=== PATIENT | female | born 1945 | race Caucasian/White ===

== ENCOUNTER 2016-05-10 13:47 | Inpatient (IN) | payer MEDICARE, MEDICAID ==
[~2016-05-10] VITALS: Ht 165.1 cm; Wt 85.8 kg
[2016-05-10] MEDS ORDERED: OPTIRAY 350 100 ML VIAL HMH IV ONE (13:48)
[2016-05-10] MEDS ORDERED: SODIUM CHLORIDE 0.9% 1,000 ML ONE ×2 (16:45→16:50)
[2016-05-10] MEDS ORDERED: CEFTRIAXONE 1 GM VIAL ONE (16:49)
[2016-05-10] MEDS ORDERED: SODIUM CHLORIDE 0.9% 100 ML IV ONE ×2 (16:50→19:21)
[2016-05-10] MEDS ORDERED: AZITHROMYCIN 500 MG VIAL IV ONE (19:20)
[2016-05-10] MEDS ORDERED: PIPER/TAZO 3.375 GM PYXIS ONE (19:20)
[2016-05-10] MEDS ORDERED: SODIUM CHLORIDE 0.9% 250 ML IV ONE (19:20)
[2016-05-10] MEDS ORDERED: NOREPINEPHRINE 16 MG in DEXTROSE 5% 250 ML IV SCH (21:10)
[2016-05-10] MEDS ORDERED: DEXTROSE 50% SYRINGE 50 ML IV PRN (21:10)
[2016-05-10] MEDS ORDERED: SALINE FLUSH 10 ML FLUSH PRN (21:10)
[2016-05-10] MEDS ORDERED: GLUCAGON 1 MG VIAL IM PRN (21:10)
[2016-05-10 21:25] VITALS: BP_SYST 109; RESP 20; TEMP 98.6
[2016-05-10 21:30] VITALS: BMI 33.6
[2016-05-10] MEDS: MICONAZOLE 2% PWD TOPICAL SCH (22:19)
[2016-05-10] MEDS: SODIUM CHLORIDE 0.9% 1,000 ML IV SCH (22:20)
[2016-05-10] MEDS: ACETAMINOPHEN 325 MG TAB PO PRN (22:26)
[2016-05-10 23:38] VITALS: BP_SYST 82; TEMP 97.9
[2016-05-10 23:40] VITALS: RESP 20
[2016-05-11] VITALS (9 sets, daily range): BP systolic 104–123; RESP 16–20; TEMP 98.1–98.8; BMI 34.5
[2016-05-11] MEDS ORDERED: PIPERACIL/TAZO 4.5GM/100ML 100 ML IV SCH
[2016-05-11] MEDS: SODIUM CHLORIDE 0.9% FLUSH BAG 500 ML IV SCH (00:05)
[2016-05-11] MEDS: PIPERACIL/TAZO 3.375GM/50ML 50 ML IV SCH ×4 (00:53→18:31)
[2016-05-11] MEDS: ONDANSETRON 4 MG VIAL IV PUSH PRN ×2 (04:51→09:22)
[2016-05-11] MEDS: ACETAMINOPHEN 325 MG TAB PO PRN ×2 (04:51→09:18)
[2016-05-11] MEDS: SODIUM CHLORIDE 0.9% 1,000 ML IV SCH ×2 (07:26→22:06)
[2016-05-11] MEDS: SALINE FLUSH 10 ML FLUSH SCH ×2 (08:00→22:06)
[2016-05-11] MEDS: CEFTRIAXONE 2 GM in SODIUM CHLORIDE 0.9% 50 ML IV SCH (08:05)
[2016-05-11] MEDS: AZITHROMYCIN 500 MG in SODIUM CHLORIDE 0.9% 250 ML IV SCH (08:05)
[2016-05-11] MEDS: ENOXAPARIN 40 MG/0.4 ML SYR SUBQ SCH ×2 (08:06→08:17)
[2016-05-11] MEDS: MICONAZOLE 2% PWD TOPICAL SCH ×3 (08:06→21:00)
[2016-05-11] MEDS: MAGNESIUM SULF 1 GM/100 ML 100 ML IV SCH ×2 (11:50→12:54)
[2016-05-11] MEDS: GABAPENTIN 300 MG CAP PO SCH ×2 (12:59→22:07)
[2016-05-11] MEDS: DOCUSATE SOD 100 MG CAP PO SCH (21:00)
[2016-05-12] VITALS (9 sets, daily range): BP systolic 100–131; RESP 16–24; TEMP 97.5–98.7
[2016-05-12] MEDS: PIPERACIL/TAZO 3.375GM/50ML 50 ML IV SCH ×5 (00:35→23:23)
[2016-05-12] MEDS: SODIUM CHLORIDE 0.9% FLUSH BAG 500 ML IV SCH (06:00)
[2016-05-12] MEDS: SALINE FLUSH 10 ML FLUSH SCH ×2 (08:00→20:00)
[2016-05-12] MEDS: ENOXAPARIN 40 MG/0.4 ML SYR SUBQ SCH (08:15)
[2016-05-12] MEDS: GABAPENTIN 300 MG CAP PO SCH ×2 (08:15→21:00)
[2016-05-12] MEDS: MICONAZOLE 2% PWD TOPICAL SCH ×3 (08:17→21:00)
[2016-05-12] MEDS: CEFTRIAXONE 2 GM in SODIUM CHLORIDE 0.9% 50 ML IV SCH (08:26)
[2016-05-12] MEDS: AZITHROMYCIN 500 MG in SODIUM CHLORIDE 0.9% 250 ML IV SCH (09:39)
[2016-05-12] MEDS ORDERED: LOPERAMIDE 2 MG CAPSULE PO PRN (18:40)
[2016-05-12] MEDS ORDERED: KCL CR 20 MEQ TAB PO ONE (18:40)
[2016-05-12] MEDS: LEVOTHYROXINE 0.15 MG TAB PO SCH (18:57)
[2016-05-12] MEDS: DIGOXIN 0.125 MG TAB PO SCH (18:57)
[2016-05-12] MEDS: SERTRALINE 50 MG TAB PO SCH (18:58)
[2016-05-12] MEDS: FAMOTIDINE 20 MG TAB PO SCH (21:00)
[2016-05-12] MEDS: KCL CR 10 MEQ TAB PO SCH (21:00)
[2016-05-12] MEDS: DOCUSATE SOD 100 MG CAP PO SCH (21:00)
[2016-05-12] MEDS: Carvedilol 6.25 MG TAB PO SCH (21:00)
[2016-05-12] MEDS: SODIUM CHLORIDE 0.9% 1,000 ML IV SCH (23:23)
[2016-05-13 03:22] VITALS: BP_SYST 90; RESP 22; TEMP 97.5
[2016-05-13] MEDS: SODIUM CHLORIDE 0.9% FLUSH BAG 500 ML IV SCH (06:00)
[2016-05-13] MEDS: PIPERACIL/TAZO 3.375GM/50ML 50 ML IV SCH (06:20)
[2016-05-13] MEDS: DICYCLOMINE 10 MG CAP PO SCH ×3 (06:27→16:46)
[2016-05-13] MEDS: LEVOTHYROXINE 0.15 MG TAB PO SCH (06:27)
[2016-05-13 08:30] VITALS: BP_SYST 116; RESP 16; TEMP 98.3
[2016-05-13] MEDS: Carvedilol 6.25 MG TAB PO SCH ×2 (08:52→20:46)
[2016-05-13] MEDS: FAMOTIDINE 20 MG TAB PO SCH ×2 (08:52→20:45)
[2016-05-13] MEDS: SERTRALINE 50 MG TAB PO SCH (08:53)
[2016-05-13] MEDS: GABAPENTIN 300 MG CAP PO SCH ×2 (08:53→20:45)
[2016-05-13] MEDS: KCL CR 10 MEQ TAB PO SCH ×2 (08:53→20:46)
[2016-05-13] MEDS: MICONAZOLE 2% PWD TOPICAL SCH (08:54)
[2016-05-13] MEDS: DIGOXIN 0.125 MG TAB PO SCH (08:54)
[2016-05-13] MEDS: ENOXAPARIN 40 MG/0.4 ML SYR SUBQ SCH (08:54)
[2016-05-13] MEDS: POTASSIUM CHLORIDE PREMIX 50 ML IV SCH ×3 (09:06→12:30)
[2016-05-13] MEDS: SALINE FLUSH 10 ML FLUSH SCH ×2 (09:07→20:00)
[2016-05-13] MEDS ORDERED: SODIUM CHLORIDE 0.9% 500 ML IV ONE (09:35)
[2016-05-13] MEDS: CEFEPIME 2000 MG/100 ML D5W 100 ML IV SCH ×2 (10:09→20:45)
[2016-05-13 11:15] VITALS: BP_SYST 122; RESP 16; TEMP 97
[2016-05-13] MEDS: ONDANSETRON 4 MG VIAL IV PUSH PRN (11:25)
[2016-05-13] MEDS: SODIUM CHLORIDE 0.9% 1,000 ML IV SCH (13:57)
[2016-05-13 15:02] VITALS: BP_SYST 98; RESP 16; TEMP 96.5
[2016-05-13 19:46] VITALS: BP_SYST 110; RESP 16; TEMP 97
[2016-05-13] MEDS ORDERED: CEFEPIME 1,000 MG in SODIUM CHLORIDE 0.9% 100 ML IV SCH (20:00)
[2016-05-13] MEDS: DOCUSATE SOD 100 MG CAP PO SCH (20:46)
[2016-05-13 23:11] VITALS: BP_SYST 108; RESP 16; TEMP 97.1
[2016-05-14 03:08] VITALS: BP_SYST 110; RESP 16; TEMP 97
[2016-05-14] MEDS: SODIUM CHLORIDE 0.9% FLUSH BAG 500 ML IV SCH (05:08)
[2016-05-14] MEDS: MICONAZOLE 2% PWD TOPICAL SCH ×3 (05:08→20:31)
[2016-05-14] MEDS: SODIUM CHLORIDE 0.9% 1,000 ML IV SCH ×2 (06:28→23:15)
[2016-05-14] MEDS: LEVOTHYROXINE 0.15 MG TAB PO SCH (06:28)
[2016-05-14] MEDS: DICYCLOMINE 10 MG CAP PO SCH ×3 (06:28→16:00)
[2016-05-14] MEDS: SALINE FLUSH 10 ML FLUSH SCH ×2 (08:00→20:00)
[2016-05-14 08:11] VITALS: BP_SYST 102; RESP 20
[2016-05-14] MEDS: FAMOTIDINE 20 MG TAB PO SCH ×3 (09:24→21:00)
[2016-05-14] MEDS: CEFEPIME 2000 MG/100 ML D5W 100 ML IV SCH ×2 (09:24→20:31)
[2016-05-14] MEDS: Carvedilol 6.25 MG TAB PO SCH ×3 (09:24→21:00)
[2016-05-14] MEDS: GABAPENTIN 300 MG CAP PO SCH ×3 (09:24→21:00)
[2016-05-14] MEDS ORDERED: MISSING DOSE XX ONE ×2 (09:25→09:35)
[2016-05-14] MEDS: ENOXAPARIN 40 MG/0.4 ML SYR SUBQ SCH (09:25)
[2016-05-14] MEDS: SERTRALINE 50 MG TAB PO SCH (09:26)
[2016-05-14 11:04] VITALS: BP_SYST 90; RESP 20; TEMP 98
[2016-05-14] MEDS: KCL CR 20 MEQ TAB PO SCH ×3 (11:41→21:00)
[2016-05-14] MEDS: DIGOXIN 0.125 MG TAB PO SCH (11:41)
[2016-05-14 16:00] VITALS: BP_SYST 108; RESP 18; TEMP 97.8
[2016-05-14 19:26] VITALS: BP_SYST 100; RESP 20; TEMP 97.1
[2016-05-14] MEDS: DOCUSATE SOD 100 MG CAP PO SCH (20:23)
[2016-05-14 23:17] VITALS: BP_SYST 98; RESP 20; TEMP 97
[2016-05-15] VITALS (29 sets, daily range): BP systolic 98–139; RESP 0–24; TEMP 96.7–98.2
[2016-05-15] MEDS: SODIUM CHLORIDE 0.9% FLUSH BAG 500 ML IV SCH (06:00)
[2016-05-15] MEDS: LEVOTHYROXINE 0.15 MG TAB PO SCH (06:46)
[2016-05-15] MEDS: DICYCLOMINE 10 MG CAP PO SCH ×3 (06:46→16:00)
[2016-05-15] MEDS: SALINE FLUSH 10 ML FLUSH SCH ×2 (08:00→20:00)
[2016-05-15] MEDS ORDERED: KCL 20 MEQ/15 ML UDC PO ONE (08:30)
[2016-05-15] MEDS: Carvedilol 6.25 MG TAB PO SCH (09:00)
[2016-05-15] MEDS: CEFEPIME 2000 MG/100 ML D5W 100 ML IV SCH ×2 (10:08→21:05)
[2016-05-15] MEDS: GABAPENTIN 300 MG CAP PO SCH ×4 (10:09→20:57)
[2016-05-15] MEDS: KCL CR 20 MEQ TAB PO SCH ×2 (10:09→20:56)
[2016-05-15] MEDS: FAMOTIDINE 20 MG TAB PO SCH ×2 (10:09→20:57)
[2016-05-15] MEDS: DIGOXIN 0.125 MG TAB PO SCH (10:10)
[2016-05-15] MEDS: SERTRALINE 50 MG TAB PO SCH (10:11)
[2016-05-15] MEDS: ENOXAPARIN 40 MG/0.4 ML SYR SUBQ SCH (10:11)
[2016-05-15] MEDS: MICONAZOLE 2% PWD TOPICAL SCH ×2 (10:12→20:56)
[2016-05-15] MEDS ORDERED: PHARMACY TO DOSE VANCOMYCIN IV SCH (10:55)
[2016-05-15] MEDS ORDERED: ONDANSETRON 4 MG TAB PO PRN (11:30)
[2016-05-15] MEDS ORDERED: GUAIFEN/DM 10 ML UDC PO PRN (11:30)
[2016-05-15] MEDS: VANCOMYCIN 1,750 MG in SODIUM CHLORIDE 0.9% 500 ML IV SCH (12:07)
[2016-05-15] MEDS: PETROLATUM TOPICAL SCH ×2 (12:07→20:55)
[2016-05-15] MEDS: ACETAMINOPHEN 500 MG TAB PO SCH ×3 (12:08→20:57)
[2016-05-15] MEDS: CALCIUM CARB/VIT D3 600 MG TAB PO SCH ×2 (12:08→20:56)
[2016-05-15] MEDS: DUONEB INH PRN ×3 (12:48→19:42)
[2016-05-15] MEDS ORDERED: MISSING DOSE XX ONE (20:50)
[2016-05-15] MEDS: DOCUSATE SOD 100 MG CAP PO SCH (20:56)
[2016-05-15] MEDS: BACITRACIN OINT TOPICAL SCH (20:56)
[2016-05-15] MEDS ORDERED: MONTELUKAST 10 MG TAB PO SCH (21:00)
[2016-05-16] VITALS (25 sets, daily range): BP systolic 94–190; RESP 14–23; TEMP 95.7–97.9; Ht 165.1 cm; Wt 85.8 kg
[2016-05-16] MEDS: VANCOMYCIN 1,750 MG in SODIUM CHLORIDE 0.9% 500 ML IV SCH ×2 (00:48→12:04)
[2016-05-16] MEDS: DUONEB INH PRN (03:08)
[2016-05-16] MEDS: SODIUM CHLORIDE 0.9% FLUSH BAG 500 ML IV SCH (05:27)
[2016-05-16] MEDS: DICYCLOMINE 10 MG CAP PO SCH ×2 (05:28→11:00)
[2016-05-16] MEDS: LEVOTHYROXINE 0.15 MG TAB PO SCH (05:28)
[2016-05-16] MEDS: DIGOXIN 0.125 MG TAB PO SCH (07:47)
[2016-05-16] MEDS: KCL CR 20 MEQ TAB PO SCH (07:47)
[2016-05-16] MEDS: CALCIUM CARB/VIT D3 600 MG TAB PO SCH (07:47)
[2016-05-16] MEDS: GABAPENTIN 300 MG CAP PO SCH ×2 (07:48→07:51)
[2016-05-16] MEDS: FAMOTIDINE 20 MG TAB PO SCH (07:48)
[2016-05-16] MEDS: CEFEPIME 2000 MG/100 ML D5W 100 ML IV SCH ×2 (07:49→20:09)
[2016-05-16] MEDS: ACETAMINOPHEN 500 MG TAB PO SCH (07:49)
[2016-05-16] MEDS: SALINE FLUSH 10 ML FLUSH SCH ×2 (07:49→20:09)
[2016-05-16] MEDS: SERTRALINE 50 MG TAB PO SCH (07:50)
[2016-05-16] MEDS: ENOXAPARIN 40 MG/0.4 ML SYR SUBQ SCH (07:50)
[2016-05-16] MEDS: PETROLATUM TOPICAL SCH ×2 (07:50→20:47)
[2016-05-16] MEDS: MICONAZOLE 2% PWD TOPICAL SCH ×2 (07:51→20:47)
[2016-05-16] MEDS ORDERED: *PATIENT RECEIVING TUBE FEEDS, ASSESS/ADJUST MEDICATIONS NG SCH (14:50)
[2016-05-16] MEDS ORDERED: GUAIFEN/DM 10 ML UDC NG PRN (15:00)
[2016-05-16] MEDS ORDERED: ONDANSETRON 4 MG TAB NG PRN (15:00)
[2016-05-16] MEDS ORDERED: ACETAMINOPHEN 650 MG/20.3 ML UDC NG PRN (15:00)
[2016-05-16] MEDS ORDERED: LOPERAMIDE 2 MG/10 ML NG PRN (15:00)
[2016-05-16] MEDS: DICYCLOMINE 10 MG CAP NG SCH (15:48)
[2016-05-16] MEDS: ACETAMINOPHEN 650 MG/20.3 ML UDC NG SCH ×2 (15:49→20:16)
[2016-05-16] MEDS ORDERED: Furosemide 20 MG/2 ML VIAL IV ONE (17:50)
[2016-05-16] MEDS: MAGNESIUM SULF 1 GM/100 ML 100 ML IV SCH ×2 (18:55→20:08)
[2016-05-16] MEDS: DOCUSATE SOD 100 MG/10 ML UDC NG SCH (20:11)
[2016-05-16] MEDS: GABAPENTIN 250 MG/5 ML UDC NG SCH (20:14)
[2016-05-16] MEDS: KCL 20 MEQ/15 ML UDC NG SCH (20:14)
[2016-05-16] MEDS: CALCIUM CARB/VIT D3 600 MG TAB NG SCH (20:14)
[2016-05-16] MEDS: MONTELUKAST 10 MG TAB NG SCH (20:15)
[2016-05-16] MEDS: FAMOTIDINE 20 MG TAB NG SCH (20:15)
[2016-05-16] MEDS: BACITRACIN OINT TOPICAL SCH (20:49)
[2016-05-17] VITALS (22 sets, daily range): BP systolic 107–158; RESP 16–28; TEMP 95.8–98.1
[2016-05-17] MEDS ORDERED: MISSING DOSE XX ONE ×2 (01:55→20:05)
[2016-05-17] MEDS: SODIUM CHLORIDE 0.9% FLUSH BAG 500 ML IV SCH ×2 (04:14→04:15)
[2016-05-17] MEDS: LEVOTHYROXINE 0.15 MG TAB NG SCH (06:02)
[2016-05-17] MEDS: DICYCLOMINE 10 MG CAP NG SCH ×3 (06:02→16:07)
[2016-05-17] MEDS: POTASSIUM CHLORIDE PREMIX 50 ML IV SCH ×5 (08:08→16:04)
[2016-05-17] MEDS: KCL 20 MEQ/15 ML UDC NG SCH ×2 (08:09→20:02)
[2016-05-17] MEDS: SALINE FLUSH 10 ML FLUSH SCH ×2 (08:09→20:00)
[2016-05-17] MEDS: CALCIUM CARB/VIT D3 600 MG TAB NG SCH ×2 (08:09→20:01)
[2016-05-17] MEDS: CEFEPIME 2000 MG/100 ML D5W 100 ML IV SCH ×2 (08:09→20:17)
[2016-05-17] MEDS: FAMOTIDINE 20 MG TAB NG SCH ×2 (08:10→20:01)
[2016-05-17] MEDS: GABAPENTIN 250 MG/5 ML UDC NG SCH ×2 (08:10→20:02)
[2016-05-17] MEDS: ENOXAPARIN 40 MG/0.4 ML SYR SUBQ SCH (08:11)
[2016-05-17] MEDS: MICONAZOLE 2% PWD TOPICAL SCH ×2 (08:12→21:00)
[2016-05-17] MEDS: PETROLATUM TOPICAL SCH ×2 (08:13→21:00)
[2016-05-17] MEDS: ACETAMINOPHEN 650 MG/20.3 ML UDC NG SCH ×3 (08:13→20:16)
[2016-05-17] MEDS: SERTRALINE 50 MG TAB NG SCH (08:16)
[2016-05-17] MEDS: Furosemide 40 MG/4 ML VIAL IV SCH ×2 (09:20→18:08)
[2016-05-17] MEDS ORDERED: LOPERAMIDE 2 MG/10 ML NG PRN (10:25)
[2016-05-17] MEDS: DIGOXIN NG SCH (12:18)
[2016-05-17] MEDS ORDERED: PHARMACY TO DOSE VANCOMYCIN IV SCH (12:35)
[2016-05-17] MEDS: MONTELUKAST 10 MG TAB NG SCH (20:01)
[2016-05-17] MEDS: BACITRACIN OINT TOPICAL SCH (21:00)
[2016-05-17] MEDS: DOCUSATE SOD 100 MG/10 ML UDC NG SCH (21:00)
[2016-05-17] MEDS: DILAUDID 1 MG/ML AMP IV PRN (22:18)
[2016-05-18] MEDS ORDERED: Furosemide 40 MG/4 ML VIAL IV ONE (00:15)
[2016-05-18 03:29] VITALS: BP_SYST 140
[2016-05-18 03:49] VITALS: BP_SYST 150; RESP 20; TEMP 98.4
[2016-05-18] MEDS: DILAUDID 1 MG/ML AMP IV PRN (05:15)
[2016-05-18] MEDS ORDERED: VANCOMYCIN 1,500 MG in SODIUM CHLORIDE 0.9% 250 ML IV SCH (06:00)
[2016-05-18] MEDS: SODIUM CHLORIDE 0.9% FLUSH BAG 500 ML IV SCH ×2 (06:00)
[2016-05-18] MEDS: LEVOTHYROXINE 0.15 MG TAB NG SCH (07:30)
[2016-05-18] MEDS: DICYCLOMINE 10 MG CAP NG SCH ×3 (07:30→15:25)
[2016-05-18 07:47] VITALS: BP_SYST 119; RESP 18; TEMP 97.7
[2016-05-18] MEDS: FAMOTIDINE 20 MG TAB NG SCH ×2 (08:58→20:24)
[2016-05-18] MEDS: SERTRALINE 50 MG TAB NG SCH (08:58)
[2016-05-18] MEDS: CALCIUM CARB/VIT D3 600 MG TAB NG SCH ×2 (08:58→20:24)
[2016-05-18] MEDS: ACETAMINOPHEN 650 MG/20.3 ML UDC NG SCH ×3 (08:59→20:23)
[2016-05-18] MEDS: KCL 20 MEQ/15 ML UDC NG SCH ×2 (09:00→20:24)
[2016-05-18] MEDS: ENOXAPARIN 40 MG/0.4 ML SYR SUBQ SCH (09:00)
[2016-05-18] MEDS: Furosemide 40 MG/4 ML VIAL IV SCH ×2 (09:01→15:27)
[2016-05-18] MEDS: GABAPENTIN 250 MG/5 ML UDC NG SCH ×2 (09:01→20:25)
[2016-05-18] MEDS: SALINE FLUSH 10 ML FLUSH SCH ×2 (09:02→20:58)
[2016-05-18] MEDS: CEFEPIME 2000 MG/100 ML D5W 100 ML IV SCH ×2 (09:02→20:58)
[2016-05-18] MEDS: PETROLATUM TOPICAL SCH ×2 (09:03→20:25)
[2016-05-18] MEDS: MICONAZOLE 2% PWD TOPICAL SCH ×2 (09:03→20:26)
[2016-05-18] MEDS: DIGOXIN NG SCH ×2 (12:00→15:26)
[2016-05-18] MEDS ORDERED: MISSING DOSE XX ONE ×2 (12:50)
[2016-05-18 15:42] VITALS: BP_SYST 108; RESP 20; TEMP 96.7
[2016-05-18] MEDS ORDERED: KCL 20 MEQ/15 ML UDC PO ONE (16:25)
[2016-05-18] MEDS: DIGOXIN 0.125 MG TAB NG SCH (17:07)
[2016-05-18 20:02] VITALS: BP_SYST 142; RESP 20; TEMP 98.1
[2016-05-18] MEDS: MONTELUKAST 10 MG TAB NG SCH (20:24)
[2016-05-18] MEDS: DOCUSATE SOD 100 MG/10 ML UDC NG SCH (20:24)
[2016-05-18] MEDS: BACITRACIN OINT TOPICAL SCH (20:27)
[2016-05-19] VITALS (7 sets, daily range): BP systolic 92–144; RESP 18–20; TEMP 97.1–99.3
[2016-05-19] MEDS: SODIUM CHLORIDE 0.9% FLUSH BAG 500 ML IV SCH ×2 (05:26→05:27)
[2016-05-19] MEDS: LEVOTHYROXINE 0.15 MG TAB NG SCH (05:27)
[2016-05-19] MEDS: DICYCLOMINE 10 MG CAP NG SCH ×3 (05:27→16:42)
[2016-05-19] MEDS: MICONAZOLE 2% PWD TOPICAL SCH ×2 (09:05→21:16)
[2016-05-19] MEDS: PETROLATUM TOPICAL SCH ×2 (09:05→20:36)
[2016-05-19] MEDS: Furosemide 40 MG/4 ML VIAL IV SCH ×2 (09:05→16:43)
[2016-05-19] MEDS: GABAPENTIN 250 MG/5 ML UDC NG SCH ×2 (09:05→20:37)
[2016-05-19] MEDS: CEFEPIME 2000 MG/100 ML D5W 100 ML IV SCH ×2 (09:06→20:34)
[2016-05-19] MEDS: ACETAMINOPHEN 650 MG/20.3 ML UDC NG SCH ×3 (09:06→20:43)
[2016-05-19] MEDS: FAMOTIDINE 20 MG TAB NG SCH ×2 (09:06→20:36)
[2016-05-19] MEDS: CALCIUM CARB/VIT D3 600 MG TAB NG SCH ×2 (09:06→20:36)
[2016-05-19] MEDS: ENOXAPARIN 40 MG/0.4 ML SYR SUBQ SCH (09:07)
[2016-05-19] MEDS: KCL 20 MEQ/15 ML UDC NG SCH ×2 (09:07→22:24)
[2016-05-19] MEDS: SERTRALINE 50 MG TAB NG SCH (09:07)
[2016-05-19] MEDS: SALINE FLUSH 10 ML FLUSH SCH ×2 (09:08→20:34)
[2016-05-19] MEDS: DIGOXIN 0.125 MG TAB NG SCH (11:32)
[2016-05-19] MEDS: MONTELUKAST 10 MG TAB NG SCH (20:34)
[2016-05-19] MEDS: DOCUSATE SOD 100 MG/10 ML UDC NG SCH (20:35)
[2016-05-19] MEDS: BACITRACIN OINT TOPICAL SCH (20:42)
[2016-05-19] MEDS ORDERED: MISSING DOSE XX ONE (21:20)
[2016-05-20] VITALS (7 sets, daily range): BP systolic 100–142; RESP 20–32; TEMP 98.9–100.3
[2016-05-20] MEDS: SODIUM CHLORIDE 0.9% FLUSH BAG 500 ML IV SCH ×2 (05:28)
[2016-05-20] MEDS: DICYCLOMINE 10 MG CAP NG SCH ×3 (07:00→17:20)
[2016-05-20] MEDS: LEVOTHYROXINE 0.15 MG TAB NG SCH (07:00)
[2016-05-20] MEDS ORDERED: MISSING DOSE XX ONE ×2 (08:10→21:10)
[2016-05-20] MEDS: SALINE FLUSH 10 ML FLUSH SCH ×2 (08:20→21:33)
[2016-05-20] MEDS: KCL 20 MEQ/15 ML UDC NG SCH ×2 (08:20→21:33)
[2016-05-20] MEDS: ACETAMINOPHEN 650 MG/20.3 ML UDC NG SCH (08:21)
[2016-05-20] MEDS: FAMOTIDINE 20 MG TAB NG SCH ×2 (08:22→21:34)
[2016-05-20] MEDS: Furosemide 40 MG/4 ML VIAL IV SCH ×2 (08:22→17:20)
[2016-05-20] MEDS: CALCIUM CARB/VIT D3 600 MG TAB NG SCH ×2 (08:22→21:34)
[2016-05-20] MEDS: GABAPENTIN 250 MG/5 ML UDC NG SCH ×2 (08:23→21:35)
[2016-05-20] MEDS: SERTRALINE 50 MG TAB NG SCH (08:24)
[2016-05-20] MEDS: CEFEPIME 2000 MG/100 ML D5W 100 ML IV SCH (08:26)
[2016-05-20] MEDS: MICONAZOLE 2% PWD TOPICAL SCH ×2 (08:28→21:34)
[2016-05-20] MEDS: PETROLATUM TOPICAL SCH ×2 (08:28→21:34)
[2016-05-20] MEDS: ENOXAPARIN 40 MG/0.4 ML SYR SUBQ SCH (08:29)
[2016-05-20] MEDS ORDERED: SODIUM CHLORIDE 0.9% IV ONE (08:50)
[2016-05-20] MEDS ORDERED: POTASSIUM CHLORIDE IV ONE (08:50)
[2016-05-20] MEDS ORDERED: LIDOCAINE 1% IV ONE (08:50)
[2016-05-20] MEDS: DIGOXIN 0.125 MG TAB NG SCH (11:44)
[2016-05-20] MEDS ORDERED: ACETAMINOPHEN 1,000 MG/100 ML IV PRN (12:35)
[2016-05-20] MEDS: DUONEB INH SCH ×4 (12:35→23:07)
[2016-05-20] MEDS: CEFEPIME 1,000 MG in SODIUM CHLORIDE 0.9% 100 ML IV SCH (17:20)
[2016-05-20] MEDS ORDERED: Furosemide 40 MG/4 ML VIAL IV ONE (18:15)
[2016-05-20] MEDS: DOCUSATE SOD 100 MG/10 ML UDC NG SCH (21:33)
[2016-05-20] MEDS: BACITRACIN OINT TOPICAL SCH (21:34)
[2016-05-20] MEDS: MONTELUKAST 10 MG TAB NG SCH (21:34)
[2016-05-21] MEDS: CEFEPIME 1,000 MG in SODIUM CHLORIDE 0.9% 100 ML IV SCH ×2 (00:06→08:36)
[2016-05-21 04:02] VITALS: BP_SYST 110; RESP 30; TEMP 100.8
[2016-05-21] MEDS: SODIUM CHLORIDE 0.9% FLUSH BAG 500 ML IV SCH (05:59)
[2016-05-21] MEDS: DICYCLOMINE 10 MG CAP NG SCH ×2 (06:00→11:40)
[2016-05-21] MEDS: LEVOTHYROXINE 0.15 MG TAB NG SCH (06:01)
[2016-05-21] MEDS: DUONEB INH SCH ×3 (07:31→15:00)
[2016-05-21 08:15] VITALS: BP_SYST 118; RESP 28; TEMP 100.3
[2016-05-21] MEDS: SALINE FLUSH 10 ML FLUSH SCH (08:36)
[2016-05-21] MEDS: FAMOTIDINE 20 MG TAB NG SCH (08:37)
[2016-05-21] MEDS: KCL 20 MEQ/15 ML UDC NG SCH (08:37)
[2016-05-21] MEDS: GABAPENTIN 250 MG/5 ML UDC NG SCH (08:37)
[2016-05-21] MEDS: CALCIUM CARB/VIT D3 600 MG TAB NG SCH (08:37)
[2016-05-21] MEDS: Furosemide 40 MG/4 ML VIAL IV SCH (08:37)
[2016-05-21] MEDS: SERTRALINE 50 MG TAB NG SCH (08:37)
[2016-05-21] MEDS: PETROLATUM TOPICAL SCH ×2 (08:38→20:35)
[2016-05-21] MEDS: ENOXAPARIN 40 MG/0.4 ML SYR SUBQ SCH (08:38)
[2016-05-21] MEDS: MICONAZOLE 2% PWD TOPICAL SCH ×2 (08:39→20:35)
[2016-05-21] MEDS ORDERED: VANCOMYCIN 750 MG in SODIUM CHLORIDE 0.9% 250 ML IV ONE (10:20)
[2016-05-21] MEDS ORDERED: MICAFUNGIN 100 MG in SODIUM CHLORIDE 0.9% 100 ML IV SCH (10:55)
[2016-05-21 11:34] VITALS: BP_SYST 116; RESP 30; TEMP 100.3
[2016-05-21] MEDS: DIGOXIN 0.125 MG TAB NG SCH (11:41)
[2016-05-21] MEDS ORDERED: ACETAMINOPHEN 325 MG TAB PO PRN (12:15)
[2016-05-21] MEDS ORDERED: ARTIF TEARS OP SOLN 0.4ML EYE EACH PRN (12:15)
[2016-05-21] MEDS ORDERED: Senna/DSS 50/8.6 MG TAB PO PRN (12:15)
[2016-05-21] MEDS ORDERED: HYOSCYAMINE SULF 0.125 MG/ML DROPS PO PRN (12:15)
[2016-05-21] MEDS ORDERED: GUAIFEN/DM 10 ML UDC PO PRN (12:15)
[2016-05-21] MEDS ORDERED: ALU/MAG/SIM 30 ML UDC PO PRN (12:15)
[2016-05-21] MEDS ORDERED: DUONEB INH PRN (12:15)
[2016-05-21] MEDS ORDERED: LORAZEPAM 0.5 MG TAB PO PRN (12:15)
[2016-05-21] MEDS ORDERED: BISMUTH SUBSAL BTL PO PRN (12:15)
[2016-05-21] MEDS: MORPHINE 2 MG/ML SYR IV PRN ×3 (12:30→22:08)
[2016-05-21] MEDS: ATROPINE 1% OP SOLN SL PRN ×2 (13:00→20:35)
[2016-05-21] MEDS ORDERED: NYSTATIN 500,000 UNITS/5 ML SUSP SWISH.SWAL SCH (13:00)
[2016-05-21] MEDS: BACITRACIN OINT TOPICAL SCH (20:35)
[2016-05-22] MEDS: ATROPINE 1% OP SOLN SL PRN (02:12)
[2016-05-22] MEDS: MORPHINE 2 MG/ML SYR IV PRN ×2 (02:12→10:23)
[2016-05-22] MEDS: SODIUM CHLORIDE 0.9% FLUSH BAG 500 ML IV SCH (05:10)
[2016-05-22] MEDS: PETROLATUM TOPICAL SCH (08:46)
[2016-05-22] MEDS: MICONAZOLE 2% PWD TOPICAL SCH (08:46)
[2016-05-22 09:25] VITALS: BP_SYST 98; RESP 16; TEMP 99.7
[2016-05-22 13:02] VITALS: BP_SYST 98; RESP 16; TEMP 99.7
== END 2016-05-22 15:03 | DRG 871 ==
LOC: ENRESERVDT → ENRESERV → ENRESERVTM → ER 13:47 → EMR 19:49 → ENPENDDIS 19:49 → 3NT 21:12 → CCU 05-15 13:16 → 4THW 05-17 17:14
PROVIDERS: ADMIT Internal Medicine; ATTEND Internal Medicine
PROC: 02HV33Z Insertion of Infusion Device into Superior Vena Cava, Percutaneous Approach (ICD-10-PCS; principal; 2016-05-16)
DX: A41.9 Sepsis, unspecified organism (principal); G93.41 Metabolic encephalopathy; J96.11 Chronic respiratory failure with hypoxia; E46 Unspecified protein-calorie malnutrition; K59.2 Neurogenic bowel, not elsewhere classified; G82.20 Paraplegia, unspecified; N39.0 Urinary tract infection, site not specified; I50.32 Chronic diastolic (congestive) heart failure; L03.116 Cellulitis of left lower limb; L03.115 Cellulitis of right lower limb; L03.114 Cellulitis of left upper limb; L03.113 Cellulitis of right upper limb; B96.20 Unspecified Escherichia coli [E. coli] as the cause of diseases classified elsewhere; B96.5 Pseudomonas (aeruginosa) (mallei) (pseudomallei) as the cause of diseases classified elsewhere; Z16.30 Resistance to unspecified antimicrobial drugs; I11.0 Hypertensive heart disease with heart failure; E66.01 Morbid (severe) obesity due to excess calories; Z68.33 Body mass index [BMI] 33.0-33.9, adult; G47.33 Obstructive sleep apnea (adult) (pediatric); E03.9 Hypothyroidism, unspecified; N31.9 Neuromuscular dysfunction of bladder, unspecified; J44.9 Chronic obstructive pulmonary disease, unspecified; F41.9 Anxiety disorder, unspecified; F43.21 Adjustment disorder with depressed mood; E11.9 Type 2 diabetes mellitus without complications; B37.2 Candidiasis of skin and nail; E88.09 Other disorders of plasma-protein metabolism, not elsewhere classified; R01.1 Cardiac murmur, unspecified; R19.7 Diarrhea, unspecified; D64.9 Anemia, unspecified; E77.8 Other disorders of glycoprotein metabolism; E87.5 Hyperkalemia; E83.42 Hypomagnesemia; Z51.5 Encounter for palliative care; Z85.3 Personal history of malignant neoplasm of breast; Z87.891 Personal history of nicotine dependence; Z86.73 Personal history of transient ischemic attack (TIA), and cerebral infarction without residual deficits
CPT/HCPCS: 36415; 36569; 36600; 70450; 71010; 74000; 74177; 76937; 80048; 80053; 80162; 80202; 81001; 82274; 82607; 82746; 82803; 82947; 83018; 83605; 83630; 83690; 83735; 84132; 84439; 84443; 85007; 85025; 85027; 86618; 87040; 87045; 87046; 87077; 87088; 87177; 87186; 87493; 94640; 94799; 99222; 99223; 99231; 99232; 99233